=== PATIENT | male | born 2000 | race Two or more races ===

== ENCOUNTER 2020-07-03 13:38 | Emergency (ER) | payer MEDICAID, OTHER ==
[~2020-07-03] VITALS: Ht 172.7 cm; Wt 70.3 kg
[2020-07-03 16:01] VITALS: BP 130/63
[2020-07-03] MEDS ORDERED: ONDANSETRON ODT 4 MG TAB PO ONE (16:45)
[2020-07-03] MEDS ORDERED: METHOCARBAMOL 500 MG TAB PO ONE (16:45)
[2020-07-03] MEDS ORDERED: IBUPROFEN 800 MG TAB PO ONE (16:45)
== END 2020-07-03 17:48 | disposition home or self-care (01) ==
LOC: ER 13:38
DX: S16.1XXA Strain of muscle, fascia and tendon at neck level, initial encounter (principal); M54.5 Low back pain; M62.838 Other muscle spasm; V49.9XXA Car occupant (driver) (passenger) injured in unspecified traffic accident, initial encounter; Y93.89 Activity, other specified; Y92.89 Other specified places as the place of occurrence of the external cause; Y99.8 Other external cause status
CPT/HCPCS: 72100; 73030; 99284; Q0162